=== PATIENT | female | born 1990 | race Caucasian/White ===

== ENCOUNTER → 2019-02-10 | Outpatient (CLI) | payer BC ==
[~2019-02-10] MED LIST: IBUP-1222 PO; OXYC-302 PO; PREN1TAB27 PO
== END | disposition home or self-care (01) ==
LOC: CFH 13:59
PROVIDERS: ATTEND Obstetrics & Gynecology
DX: N63.10 Unspecified lump in the right breast, unspecified quadrant (principal)
CPT/HCPCS: 76642